=== PATIENT | male | born 1980 | race Caucasian/White ===

== ENCOUNTER 2018-06-30 20:30 | Emergency (ER) | payer MEDICAID ==
[~2018-06-30] VITALS: Ht 193 cm; Wt 120.7 kg
[2018-06-30 20:44] VITALS: Ht 193 cm; Wt 120.7 kg
[2018-06-30 21:46] LABS: PLATELET COUNT 174 x10^3mcL (130-400)
[2018-06-30 21:59] LABS: CALCIUM 8.3 mg/dL (8.5-10.1); CARBON DIOXIDE 26.9 mmol/L (21-32); CHLORIDE SERUM 89 mmol/L (98-107); CREATININE SERUM 0.6 mg/dL (0.7-1.3); GFR1 > 60 mL/min; GLUCOSE SERUM 85 mg/dL (74-106); POTASSIUM SERUM 4.2 mmol/L (3.5-5.1); SODIUM SERUM 126 mmol/L (136-145)
[2018-06-30 22:08] LABS: ALKALINE PHOSPHATASE 333 U/L (46-116); ALT/SGPT 231 U/L (16-63); AST/SGOT 571 U/L (15-37); BILIRUBIN TOTAL 5.7 mg/dL (0.20-1.00); TOTAL PROTEIN, SERUM 7.8 g/dL (6.4-8.2)
[2018-06-30 22:13] LABS: ALBUMIN 2.9 g/dL (3.4-5.0)
[2018-06-30 22:22] LABS: BAND NEUTROPHIL 0 % (0-10); BASOPHIL 0 % (0-2); MONOCYTE 11 % (0-7); SEGMENTED NEUTROPHILS 68 % (37-75); rbc morphology (normal/abnorm) ABNORMAL (NORMAL)
[2018-06-30 22:24] LABS: PLATELET MORPHOLOGY PLATELETS NORMAL; target cell (codocyte) 1+
[2018-06-30 22:24] LABS: AMPHETAMINE QUAL UR NONE DETECTED (See below)
[2018-07-01 00:22] VITALS: BP 114/68
== END 2018-07-01 00:22 | disposition home or self-care (01) ==
LOC: ED 20:30
PROVIDERS: Emergency Medicine
DX: K70.10 Alcoholic hepatitis without ascites (principal); K70.30 Alcoholic cirrhosis of liver without ascites; F10.129 Alcohol abuse with intoxication, unspecified; Z98.890 Other specified postprocedural states
CPT/HCPCS: G0480; J1885; J2060; J3411; J3475; J3490; J7030; Q0092